=== PATIENT | female | born 1945 | race Hispanic/Latino ===

== ENCOUNTER 2017-03-25 09:52 | Emergency (ER) | payer OTHER ==
[2017-03-25] MEDS ORDERED: HYDROCODONE/ACETAMINOPHEN 5/325 MG TAB ONE (11:11)
[2017-06-10] MEDS ORDERED: BIOT5000 PO (12:47)
[2017-06-10] MEDS ORDERED: ATOR40TA71 PO (12:47)
[2017-06-10] MEDS ORDERED: GLIP1TAB6 PO (12:47)
[2017-06-10] MEDS ORDERED: LISI2.5T2 PO (12:47)
[2017-06-10] MEDS ORDERED: VIBRID PO (12:47)
[2017-06-10] MEDS ORDERED: LORA10CA9 PO (12:47)
[2017-06-10] MEDS ORDERED: ROPI0.255 PO (12:47)
[2017-06-10] MEDS ORDERED: [UNRECOGNIZED DRUG - OTHER] PUFF (12:47)
[2017-06-10] MEDS ORDERED: ALEN70TA47 PO (12:47)
[2017-06-10] MEDS ORDERED: INSU200I SQ (12:47)
[2017-06-10] MEDS ORDERED: DULO60CA63 PO (12:47)
[2017-06-10] MEDS ORDERED: TUSSIN COUGH PO (12:47)
[2017-06-10] MEDS ORDERED: GABA-529 PO (12:47)
[2017-06-10] MEDS ORDERED: ACET-2247 PO (12:47)
[2017-06-10] MEDS ORDERED: ASPI81TA40 PO (12:47)
[2017-06-10] MEDS ORDERED: FLUTICASONE PUFF (12:47)
[2017-06-10] MEDS ORDERED: IMIP75CA PO (12:47)
[2017-06-10] MEDS ORDERED: IRON PO (12:47)
[2017-06-10] MEDS ORDERED: OXYB5TAB10 PO (12:47)
[2017-06-10] MEDS ORDERED: FISH OIL PO (12:47)
[2017-06-10] MEDS ORDERED: INSU3INS3 SQ (12:47)
== END 2017-03-25 12:51 | disposition home or self-care (01) ==
LOC: EDH 09:52
DX: S80.01XA Contusion of right knee, initial encounter (principal); I10 Essential (primary) hypertension; E78.5 Hyperlipidemia, unspecified; E11.9 Type 2 diabetes mellitus without complications; Z98.890 Other specified postprocedural states; W18.39XA Other fall on same level, initial encounter; Y93.89 Activity, other specified; Y92.89 Other specified places as the place of occurrence of the external cause; Y99.8 Other external cause status
CPT/HCPCS: 71045; 73562

== ENCOUNTER 2017-06-11 08:34 | Day surgery (SDC) | payer OTHER ==
[~2017-06-11] VITALS: Ht 165.1 cm; Wt 94.9 kg
[~2017-06-11 08:34] MED LIST: ACET-2247 PO; ALEN70TA47 PO; ASPI81TA40 PO; ATOR40TA71 PO; BIOT5000 PO; DULO60CA63 PO; FISH OIL PO; FLUTICASONE PUFF; GABA-529 PO; GLIP1TAB6 PO; IMIP75CA PO; INSU200I SQ; INSU3INS3 SQ; IRON PO; LISI2.5T2 PO; LORA10CA9 PO; OXYB5TAB10 PO; ROPI0.255 PO; SODIUM CHLORIDE 0.9% 1000ML 1,000 ML IV ONE; TUSSIN COUGH PO; VIBRID PO; [UNRECOGNIZED DRUG - OTHER] PUFF
[2017-06-11 09:44] VITALS: BP 140/72
[2017-06-11] MEDS ORDERED: PROPOFOL 10 MG/ML 20ML VIAL IV ONE (10:55)
[2017-06-11 11:16] VITALS: BP 85/47
[2017-06-11 11:36] VITALS: BP 107/48
== END 2017-06-11 12:00 ==
LOC: ENDO 08:34 → DAH 08:34 → ENDO 12:00
PROVIDERS: ATTEND Internal Medicine Gastroenterology
DX: Z12.11 Encounter for screening for malignant neoplasm of colon (principal); Z86.010 Personal history of colon polyps; Z79.4 Long term (current) use of insulin; Z79.899 Other long term (current) drug therapy; K21.9 Gastro-esophageal reflux disease without esophagitis; J45.909 Unspecified asthma, uncomplicated; J18.9 Pneumonia, unspecified organism; Z68.41 Body mass index [BMI] 40.0-44.9, adult; G47.33 Obstructive sleep apnea (adult) (pediatric); E11.9 Type 2 diabetes mellitus without complications; J40 Bronchitis, not specified as acute or chronic
CPT/HCPCS: 82948 ×2; A4606; G0105; J2704; J7030

== ENCOUNTER → 2018-02-26 | Outpatient (CLI) | payer OTHER ==
[~2018-02-26] MED LIST changes: +ALEN70TA10 PO; -ALEN70TA47 PO; -DULO60CA63 PO; -ROPI0.255 PO; +ROPI0.257 PO; -SODIUM CHLORIDE 0.9% 1000ML 1,000 ML IV ONE
--- NOTE | 2018-02-26 21:00 | NUR ---
CURRENT MEDICATIONS LIST(BOTH PRESCRIPTION AND OVER THE COUNTER). PATIENT UNABLE TO RECALL SOME MEDICATION NAMES LANTUS, GLIPIZIDE , METFORMIN, ATORVASTATIN, ARTHRITIS PAIN TYLENOL, HYBRID TYLENOL3, DEPRESSION MEDICATION, URINE PROBLEM MED., STEROID INJECTIONS FOR PAIN, DIABETITUSSIN, FISH OIL , BIOTIN, DIABETIC NEUROPATHY PAIN MEDS. ROPINIROLE, GABAPENTIN, IMIPRAMINE, FLUTICASONE, FLOVENT. Addendum: 02/27/18 at 0004 by KARSON BRYANTLT Amended: Links added.
== END | disposition home or self-care (01) ==
LOC: SLP 20:33
PROVIDERS: ATTEND Family Medicine
DX: G47.33 Obstructive sleep apnea (adult) (pediatric) (principal); I10 Essential (primary) hypertension; E11.9 Type 2 diabetes mellitus without complications; E66.9 Obesity, unspecified; F32.9 Major depressive disorder, single episode, unspecified; R53.83 Other fatigue; M54.5 Low back pain
CPT/HCPCS: 95810

== ENCOUNTER → 2018-03-02 | Outpatient (CLI) | payer OTHER | END | disposition home or self-care (01) | LOC: SLP 20:15 | PROVIDERS: ATTEND Family Medicine | DX: G47.30 Sleep apnea, unspecified (principal); R06.83 Snoring | CPT/HCPCS: 95811 ==

== ENCOUNTER 2019-04-14 11:09 | Emergency (ER) | payer OTHER ==
[~2019-04-14 11:09] MED LIST changes: -OXYB5TAB10 PO; +OXYB5TAB15 PO
[2019-04-14 11:40] LABS: BASOPHILS % (AUTO) 0.7 % (0.0-5.0); EOSINOPHILS % (AUTO) 2.1 % (0.0-8.0); HEMATOCRIT 31.7 % (36-48); LYMPHOCYTES % (AUTO) 24.4 % (21.0-51.0); MEAN CORPUSCULAR HEMOGLOBIN 29.7 pg (27.0-33.0); MEAN CORPUSCULAR HGB CONC 32.2 g/dL (32.0-36.0); MEAN CORPUSCULAR VOLUME 92.4 fL (79-99); MONOCYTES % (AUTO) 7.1 % (3.0-13.0); NEUTROPHILS % (AUTO) 65.5 % (40.0-77.0); PLATELET COUNT (AUTO) 215 K/uL (130-400); RED BLOOD CELL COUNT(AUTO) 3.43 MIL/uL (4.00-5.50); RED CELL DISTRIBUTION WIDTH 12.8 % (11.0-15.5); WHITE BLOOD COUNT (AUTO) 5.8 K/uL (4.8-10.8)
[2019-04-14 11:52] LABS: CREATININE 1.1 mg/dL (0.5-1.5); POTASSIUM 4.4 mmol/L (3.5-5.1)
[2019-04-14 11:56] LABS: ALBUMIN 3.4 g/dL (3.5-5.0); BILIRUBIN,TOTAL 0.2 mg/dL (0.2-1.0); TOTAL PROTEIN, SERUM 6.7 g/dL (6.0-8.3)
[2019-04-14 12:07] LABS: INR 0.95 (0.85-1.15); PARTIAL THROMBOPLASTIN TIME 26.5 SEC (26.3-35.5)
[2019-04-14] MEDS ORDERED: IOHEXOL-350 75 ML VIAL IV ONE (12:59)
== END 2019-04-14 16:33 | disposition home or self-care (01) ==
LOC: EDH 11:09
DX: R00.0 Tachycardia, unspecified (principal); E11.9 Type 2 diabetes mellitus without complications; I10 Essential (primary) hypertension; E78.5 Hyperlipidemia, unspecified
CPT/HCPCS: 36415; 71045; 71275; 80053; 82550; 82948; 83880; 84443; 84484; 85025; 85378; 85610; 85730; 93005; 93970; 99285; Q9967

== ENCOUNTER → 2019-06-10 | Outpatient (CLI) | payer OTHER | END | disposition home or self-care (01) | LOC: RAH 08:36 | PROVIDERS: ATTEND Family Medicine | DX: Z12.31 Encounter for screening mammogram for malignant neoplasm of breast (principal) | CPT/HCPCS: 77067 ==

== ENCOUNTER → 2019-10-14 | Outpatient (CLI) | payer OTHER ==
[~2019-10-14] MED LIST changes: +REGADENOSON 0.4 MG/5 ML PF SYG IVP SCH
== END | disposition home or self-care (01) ==
LOC: SHCH 09:18
PROVIDERS: ATTEND Internal Medicine Cardiovascular Disease
DX: R06.00 Dyspnea, unspecified (principal); I25.10 Atherosclerotic heart disease of native coronary artery without angina pectoris
CPT/HCPCS: 78452; 93017; 96374; A9500 ×2; J2785

== ENCOUNTER → 2020-02-23 | Outpatient (CLI) | payer OTHER ==
[~2020-02-23] MED LIST changes: -ALEN70TA10 PO; +ALEN70TA69 PO; -REGADENOSON 0.4 MG/5 ML PF SYG IVP SCH
== END | disposition home or self-care (01) ==
LOC: SHCH 13:21
PROVIDERS: ATTEND Internal Medicine Cardiovascular Disease
DX: I95.1 Orthostatic hypotension (principal)
CPT/HCPCS: 93306; 93356

== ENCOUNTER 2020-05-09 00:59 | Emergency (ER) | payer OTHER ==
[~2020-05-09 00:59] MED LIST changes: -ALEN70TA69 PO; +ALEN70TA80 PO; +LISI2.5T13 PO; -LISI2.5T2 PO
[2020-05-09] MEDS ORDERED: 0.9%NACL 1000ML 1,000 ML IV ONE (01:00)
[2020-05-09 01:29] LABS: BASOPHILS % (AUTO) 0.8 % (0.0-5.0); EOSINOPHILS % (AUTO) 3.3 % (0.0-8.0); HEMATOCRIT 32.5 % (36-48); MEAN CORPUSCULAR HEMOGLOBIN 30.5 pg (27.0-33.0); MEAN CORPUSCULAR HGB CONC 32.9 g/dL (32.0-36.0); MEAN CORPUSCULAR VOLUME 92.6 fL (79-99); MONOCYTES % (AUTO) 9.7 % (3.0-13.0); NEUTROPHILS % (AUTO) 53.9 % (40.0-77.0); PLATELET COUNT (AUTO) 218 K/uL (130-400); RED BLOOD CELL COUNT(AUTO) 3.51 MIL/uL (4.00-5.50); RED CELL DISTRIBUTION WIDTH 12.2 % (11.0-15.5); WHITE BLOOD COUNT (AUTO) 7.3 K/uL (4.8-10.8)
[2020-05-09 01:31] LABS: CREATININE 1.6 mg/dL (0.5-1.5); POTASSIUM 4.8 mmol/L (3.5-5.1)
[2020-05-09 01:36] LABS: ALBUMIN 3.6 g/dL (3.5-5.0); BILIRUBIN,TOTAL 0.1 mg/dL (0.2-1.0); TOTAL PROTEIN, SERUM 6.4 g/dL (6.0-8.3)
[2020-05-09 02:42] LABS: INR 1.03 (0.85-1.15); PROTHROMBIN TIME 11.2 SEC (9.6-11.6)
[2020-05-09 02:43] LABS: PARTIAL THROMBOPLASTIN TIME 23.2 SEC (26.3-35.5)
[2020-05-09 05:42] LABS: APPEARANCE,URINE Clear (CLEAR); BILIRUBIN,URINE Negative (NEGATIVE); COLOR,URINE Yellow (YELLOW); GLUCOSE, URINE (UA) Negative (NEGATIVE); KETONES,URINE Negative (NEGATIVE); LEUKOCYTE ESTERASE ,URINE Moderate (NEGATIVE); NITRATE,URINE Positive (NEGATIVE); OCCULT BLOOD,URINE Negative (NEGATIVE); PROTEIN,URINE Negative (NEGATIVE); UROBILINOGEN,URINE 0.2 mg/dL (0.2-1.0)
[2020-05-09 05:55] LABS: BACTERIA,URINE Many /HPF (None Seen); RBC,URINE None Seen /HPF (0-1)
== END 2020-05-09 06:43 | disposition home or self-care (01) ==
LOC: EDH 00:59
DX: E86.0 Dehydration (principal); R55 Syncope and collapse; E11.9 Type 2 diabetes mellitus without complications; I10 Essential (primary) hypertension; E78.5 Hyperlipidemia, unspecified
CPT/HCPCS: 36415; 71045; 80053; 81001; 83880; 84484 ×2; 85025; 85610; 85730; 87077; 87088; 87186; 93005; 96360; 96361; 99285; J7030

== ENCOUNTER → 2020-06-23 | Outpatient (CLI) | payer OTHER ==
[~2020-06-23] MED LIST changes: -LISI2.5T13 PO; +LISI2.5T2 PO
== END | disposition home or self-care (01) ==
LOC: RAH 10:17
PROVIDERS: ATTEND Family Medicine
DX: Z12.31 Encounter for screening mammogram for malignant neoplasm of breast (principal); Z00.01 Encounter for general adult medical examination with abnormal findings
CPT/HCPCS: 77067

== ENCOUNTER → 2021-03-15 | Outpatient (CLI) | payer OTHER ==
[~2021-03-15] MED LIST changes: +GADOTERATE MEGLUMINE 10 MMOL/20 ML VIAL IV ONE; +LISI2.5T13 PO; -LISI2.5T2 PO
== END | disposition home or self-care (01) ==
LOC: RAH 10:00
PROVIDERS: ATTEND Family Medicine
DX: M47.26 Other spondylosis with radiculopathy, lumbar region (principal); M48.07 Spinal stenosis, lumbosacral region; N28.89 Other specified disorders of kidney and ureter
CPT/HCPCS: 72158; A9575

== ENCOUNTER → 2021-05-03 | Outpatient (CLI) | payer OTHER ==
[~2021-05-03] MED LIST changes: -GADOTERATE MEGLUMINE 10 MMOL/20 ML VIAL IV ONE; +IOHEXOL-350 75 ML VIAL IV ONE
== END | disposition home or self-care (01) ==
LOC: RAH 08:23
PROVIDERS: ATTEND Family Medicine
DX: N28.89 Other specified disorders of kidney and ureter (principal); Z90.49 Acquired absence of other specified parts of digestive tract
CPT/HCPCS: 74170; Q9967

== ENCOUNTER → 2022-01-07 | Outpatient (CLI) | payer OTHER ==
[~2022-01-07] MED LIST changes: -IOHEXOL-350 75 ML VIAL IV ONE
[2022-01-07 12:53] LABS: CREATININE 0.9 mg/dL (0.5-1.5); POTASSIUM 4.9 mmol/L (3.5-5.1); TOTAL PROTEIN, SERUM 7.5 g/dL (6.0-8.3)
== END | disposition home or self-care (01) ==
LOC: LAB 09:55
PROVIDERS: ATTEND Internal Medicine Cardiovascular Disease
DX: I25.10 Atherosclerotic heart disease of native coronary artery without angina pectoris (principal); I95.1 Orthostatic hypotension; E78.5 Hyperlipidemia, unspecified
CPT/HCPCS: 36415; 80053; 80061

== ENCOUNTER → 2022-12-17 | Outpatient (CLI) | payer OTHER ==
[~2022-12-17] MED LIST changes: -OXYB5TAB15 PO; +OXYB5TAB20 PO; +ROPI0.2535 PO; -ROPI0.257 PO
[2022-12-17 13:04] LABS: ALBUMIN 3.8 g/dL (3.5-5.0); BILIRUBIN,TOTAL 0.2 mg/dL (0.2-1.0); CREATININE 0.9 mg/dL (0.5-1.5); POTASSIUM 5.1 mmol/L (3.5-5.1); TOTAL PROTEIN, SERUM 7.2 g/dL (6.0-8.3)
== END | disposition home or self-care (01) ==
LOC: LAB 08:57
PROVIDERS: ATTEND Internal Medicine Cardiovascular Disease
DX: E78.5 Hyperlipidemia, unspecified (principal)
CPT/HCPCS: 36415; 80053; 80061

== ENCOUNTER 2024-01-05 12:49 | Observation (INO) | payer OTHER ==
[~2024-01-05] VITALS: Ht 152.4 cm; Wt 66.8 kg
--- NOTE | 2024-01-05 13:29 | ERN ---
ED Note History of Present Illness Stated Complaint: FALL Chief Complaint: Mechanical Fall Time Seen by MD: 12:51 Dictation: Patient is a 78-year-old female with past medical history of diabetes, depression, anxiety, OCD, osteoporosis came to the ED with chief complaint of pain in the right back since this morning. Patient had a mechanical fall this morning where she directly to her right back of chest to the paper Isonaser machine and complains of pain and tenderness, she also hit her head, right hip, right fingers and right toes. There is no loss of consciousness. There is no loss in range of motion. Allergies: Coded Allergies: No Known Drug Allergies (Unverified Allergy, Unknown, 06/11/17) Home Meds Reported Medications Trazodone HCl (Trazodone HCl) 50 Mg Tablet, 1 TAB PO HS for 30 Days, #30 TAB 0 Refills 01/05/24 Ropinirole HCl (Ropinirole HCl) 0.25 Mg Tablet, 1 TAB PO HS for 30 Days, #30 TAB 0 Refills 01/05/24 Gabapentin (Gabapentin) 600 Mg Tablet, 1 TAB PO HS for 30 Days, #90 TAB 0 Refills 01/05/24 Gabapentin (Gabapentin) 100 Mg Capsule, 300 MG PO DAILY, CAP 01/05/24 Oxybutynin Chloride (Oxybutynin Chloride ER) 5 Mg Tab.er.24, 1 TAB PO DAILY for 30 Days, #30 TAB 0 Refills 01/05/24 Pindolol (Pindolol) 10 Mg Tablet, 5 MG PO DAILY, TAB 01/05/24 Buspirone HCl (Buspirone HCl) 5 Mg Tablet, 1 TAB PO BID for 30 Days, #60 TAB 0 Refills 01/05/24 Baclofen (Baclofen) 10 Mg Tablet, 10 MG PO BID, TAB 01/05/24 Metformin HCl (Metformin HCl) 500 Mg Tablet, 500 MG PO TID, TAB 01/05/24 Paroxetine HCl (Paroxetine HCl) 10 Mg Tablet, 1 TAB PO DAILY for 30 Days, #30 TAB 0 Refills 01/05/24 Acetaminophen (Tylenol) 325 Mg Tablet, 2 TAB PO TID, TAB 06/10/17 Biotin (Biotin) 5,000 Mcg Tab.rapdis, 5000 MCG PO DAILY, TAB 06/10/17 Insulin Glargine,Hum.rec.anlog (Lantus Solostar) 100 Unit/1 Ml Insuln.pen, 50 UNIT SQ AD, SYRINGE 06/10/17 Atorvastatin Calcium (Atorvastatin Calcium) 40 Mg Tablet, 40 MG PO DAILY, TAB 06/10/17 Oxybutynin Chloride (Oxybutynin Chloride) 5 Mg Tablet, 5 MG PO BID, TAB 06/10/17 Alendronate Sodium (Alendronate Sodium) 70 Mg Tablet, 70 MG PO WKLY, TAB 06/10/17 Lisinopril (Lisinopril) 2.5 Mg Tablet, 2.5 MG PO DAILY, TAB 06/10/17 Glipizide/Metformin HCl (Glipizide-Metformin 5-500 mg) 1 Each Tablet, 1 EACH PO BID, TAB 06/10/17 [Fluticasone] No Conflict Check, 50 MCG PUFF BID 1 PUFF 06/10/17 [Qva] No Conflict Check, 40 MCG PUFF BID 1 PUFF 06/10/17 [Fish Oil ] No Conflict Check, PO AD 06/10/17 [Tussin Cough ] No Conflict Check, PO AD 06/10/17 [Iron] No Conflict Check, 65 MG PO WKLY 06/10/17 Loratadine (Loratadine) 10 Mg Capsule, 10 MG PO AD, CAP 06/10/17 Imipramine Pamoate (Imipramine Pamoate) 75 Mg Capsule, 75 MG PO HS, CAP 06/10/17 [Vibrid] No Conflict Check, 10 MG PO AD 06/10/17 Aspirin (Aspir-Low) 81 Mg Tablet.dr, 81 MG PO DAILY, TAB 06/10/17 Insulin Lispro (Humalog Kwikpen) 200 Unit/1 Ml Insuln.pen, 30 UNIT SQ AD, SYRINGE 06/10/17 Discontinued Reported Medications Gabapentin (Gabapentin) 100 Mg Capsule, 100 MG PO BID, CAP 06/10/17 Ropinirole HCl (Ropinirole HCl) 0.25 Mg Tablet, 0.25 MG PO TID, TAB 06/10/17 Past Medical History Past Medical History: Other Surgical History: Other Review of System Dictation Constitutional-no chills, weight loss/gain, fever Eyes-no injury, pain, redness and discharge ENT-no injury, pain, swelling Cardiovascular no chest pain, palpitations, edema Respiratory no shortness of breath, cough, wheezing Abdomen/GI-no abdominal pain, diarrhea, constipation, vomiting, nausea Back no injury and pain Genitourinary no injury, bleeding and discharge Musculoskeletal/extremities no injury, deformity . Patient has pain and tenderness in right pack of chest, right hip Skin no rash, discoloration Neuro-no headache, weakness, numbness, tingling, seizures, tremors Psych-no suicidal ideation, homicidal ideation, hallucinations, depression, anxiety, memory loss Initial Vital Sign VS Vital Signs Date Time Temp Pulse Resp B/P (MAP) Pulse Ox O2 Delivery O2 Flow Rate FiO2 01/05/24 12:50 97.0 64 20 150/71 99 Room Air 01/05/24 13:05 0 21 Physical Exam Dictation General-patient is awake alert and oriented Head/neck-normocephalic, atraumatic Eyes-PERRL, EOMI, vision at baseline Neck-trachea midline, supple, no nuchal rigidity Cardiovascular-RRR, normal S1/S2, no MRG is, no JVD Respiratory-no distress, wheezing, rales, rhonchi Abdomen-no tenderness, guarding, soft, nondistended Skin warm, dry, normal turgor, no rash Musculoskeletal/extremities pulses equal, no cyanosis Neuro-COA X 4, GCS 15, strength 5/5, CN 2-12 intact Psych-normal behavior, mood and affect normal Results (Laboratory/Radiology) Laboratory/Radiology Laboratory Tests Test 01/05/24 14:58 White Blood Count 5.1 K/uL (4.8-10.8) Red Blood Count 3.22 MIL/uL (4.00-5.50) L Hemoglobin 10.4 g/dL (12.0-16.0) L Hematocrit 31.0 % (36-48) L Mean Corpuscular Volume 96.3 fL (79-99) Mean Corpuscular Hemoglobin 32.3 pg (27.0-33.0) Mean Corpuscular Hemoglobin Concent 33.5 g/dL (32.0-36.0) Red Cell Distribution Width 12.3 % (11.0-15.5) Platelet Count 198 K/uL (130-400) Mean Platelet Volume 9.3 fL (7.5-10.5) Immature Granulocyte % (Auto) 0.8 % (0-1) Neutrophils (%) (Auto) 70.2 % (40.0-77.0) Lymphocytes (%) (Auto) 15.2 % (21.0-51.0) L Monocytes (%) (Auto) 10.8 % (3.0-13.0) Eosinophils (%) (Auto) 2.0 % (0.0-8.0) Basophils (%) (Auto) 1.0 % (0.0-5.0) Neutrophils # (Auto) 3.6 K/uL (1.8-7.7) Lymphocytes # (Auto) 0.8 K/uL (1.0-4.8) L Monocytes # (Auto) 0.6 K/uL (0.1-1.0) Eosinophils # (Auto) 0.10 K/uL (0.00-0.70) Basophils # (Auto) 0.05 K/uL (0.00-0.20) Absolute Immature Granulocyte (auto 0.04 K/uL (0-1) Nucleated Red Blood Cells 0.0 % (0.0-0.19) Prothrombin Time 11.1 SEC (9.6-11.6) Prothromb Time International Ratio 1.03 (0.85-1.15) Activated Partial Thromboplast Time 26.9 SEC (26.3-35.5) Sodium Level 137 mmol/L (136-145) Potassium Level 4.8 mmol/L (3.5-5.1) Chloride Level 102 mmol/L (101-111) Carbon Dioxide Level 29 mmol/L (21-32) Blood Urea Nitrogen 22 mg/dL (7-18) H Creatinine 0.8 mg/dL (0.5-1.0) Glomerular Filtration Rate Calc 74 mL/min (>90) Random Glucose 108 mg/dL (70-105) H Total Calcium 9.3 mg/dL (8.5-10.1) Magnesium Level 1.50 mg/dL (1.80-2.40) L Total Creatine Kinase 218 U/L (21-232) # Troponin I High Sensitivity 17 ng/L (4-50) B-Type Natriuretic Peptide 77 pg/mL (0-100) CT Scan Comment: PATIENT: BRYANT SLATER MR#: [id number] : 1945 SEX: F AGE: 78 LOCATION: [facility] ORDER 08 STATUS: REG [facility]OSPITAL REPORT#: [id number] SERVICE 05 REASON: mechanical fall , impact to head ORDERING PHYSICIAN: LYUBOV PANDA MD PROCEDURE: CHESTAB WO - CT CHEST ABDOMEN W/O CONTRAST CT CHEST ABDOMEN W/O CONTRAST REASON: mechanical fall , impact to head COMPARISON: 05/03/2021 TECHNIQUE: Images are obtained from thoracic inlet through the iliac crests. Sagittal and coronal reconstruction images were performed. FINDINGS: There is a complex fracture of the ninth posterior rib. This includes a nondisplaced fracture, there is a 3 cm long fragment followed by a second to displaced rib fracture. Remaining ribs appear intact as do the sternum and the thoracic spine. Lungs are clear. There is no evidence of contusion or laceration. There is no pneumothorax or pleural effusion. Heart size is normal with no vascular congestion, there is extensive coronary artery calcification. Chest wall structures appear otherwise unremarkable. There are no focal liver lesions. Spleen, right kidney and pancreas appear normal. There is a complex mass extending posteriorly from the midportion of the left kidney. This measures 3.2 cm greatest axial dimension. This was visible on previous exam 05/03/2021 as a noncalcified 4.7 cm soft tissue mass. Findings are consistent with a treated hypernephroma. Residual tumor cannot be excluded by this exam. Gallbladder is absent. The common duct is markedly distended at 1.4 cm. There are no visible stones. Bowel loops appear normal. There is no free air or fluid. There are no focal fluid collections. There is a small ventral hernia just to the left of midline in the periumbilical region. There are surgical changes in the lower lumbar spine. IMPRESSION: 1. There are 2 contiguous fractures in the left posterior ninth rib, 1 nondisplaced and second displaced. 2. No other acute finding in the chest or abdomen. 3. 3.2 cm partially calcified mass posterior margin of the left kidney, appearance consistent with a treated hypernephroma as described above. 4. Absent gallbladder, the common duct is dilated at 1.2 cm, the pancreas appears unremarkable. DICTATED BY: ESME QUIJANO MD DATE: 01/05/24 142 ELECTRONICALLY SIGNED BY: ESME QUIJANO MD DATE: 01/05/24 143 PATIENT: BRYANT SLATER MR#: [id number] : 1945 SEX: F AGE: 78 LOCATION: [facility] ORDER 1309 STATUS: REG ER REPORT#: [id number] SERVICE 1306 REASON: mechanical fall , impact to head ORDERING PHYSICIAN: LYUBOV PANDA MD PROCEDURE: HEAD WO - CT HEAD/BRAIN W/O CONTRAST Exam: NONCONTRAST CT BRAIN REASON: mechanical fall , impact to head. COMPARISON: 08/24/2012 TECHNIQUE: Images are obtained from vertex to the skull base. The exam was performed without IV contrast. FINDINGS: There is normal appearing brain parenchyma. There are no focal mass lesions. There is is no evidence of intracranial hemorrhage or acute stroke. Ventricles and sulci appear generous consistent with age or mild involutional change. Posterior fossa and brainstem structures are unremarkable. Paranasal sinuses and remaining extracranial soft tissues appear normal as well. IMPRESSION: 1. No acute intracranial finding. CT was performed with one or more following dose reduction techniques: automated exposure control, adjustment of the mA and kv according to patient's size, or use of a iterative reconstruction technique. DICTATED BY: ESME QUIJANO MD DATE: 01/05/241421 ELECTRONICALLY SIGNED BY: ESME QUIJANO MD DATE: 01/05/24 142 ED Course ED Course Orders Procedure Category Date Status Time Ct Head/Brain W/O CT 01/05/24 Resulted Contrast 13:06 Ct Chest Abdomen W/O CT 01/05/24 Resulted Contrast 13:06 Acetaminophen 500mg PHA 01/05/24 Complete Tab (Tylenol 500mg T 13:30 Cbc With Differential LAB 01/05/24 Complete 14:46 Prothrombin Time With LAB 01/05/24 Complete INR 14:46 B-Type Natriuretic LAB 01/05/24 Complete Peptide 14:46 Chest 1vw RAD 01/05/24 Resulted 14:46 12 Lead Ekg Tracing- EKG 01/05/24 Logged Technical 14:46 Magnesium LAB 01/05/24 Complete 14:46 Creatine Kinase, Total LAB 01/05/24 Complete 14:46 Troponin I High LAB 11/25/24 Complete Sensitivity 14:46 Partial LAB 01/05/24 Complete Thromboplastin Time 14:46 Basic Metabolic Panel LAB 01/05/24 Complete 14:46 Orphenadrine Citrate PHA 01/05/24 Complete (Norflex) 15:00 Gabapentin 100 Mg Cap PHA 01/05/24 Complete (Neurontin 100 Mg 15:00 Hip Unilat 2-3vw Right RAD 01/05/24 Resulted 14:59 Hand 3+Vws Rt RAD 01/05/24 Resulted 14:59 Toe(S) 2+Vws Rt RAD 01/05/24 Resulted 14:59 Gabapentin 100 Mg Cap PHA 01/05/24 Complete (Neurontin 100 Mg 15:30 Vital Signs Every 4 CPOE 01/05/24 Transmitted Hours 15:54 Daily Weights CPOE 01/05/24 Transmitted 15:54 I&O Q Shift CPOE 01/05/24 Transmitted 15:54 Intake And Output CPOE 01/05/24 Transmitted Every 1 Hour 15:54 Heart Healthy Diet DIET 01/05/24 Transmitted Dinner Cbc With Differential LAB 01/06/24 Verified 04:00 Basic Metabolic Panel LAB 01/06/24 Verified 04:00 Magnesium LAB 01/06/24 Verified 04:00 Phosphorus LAB 01/06/24 Verified 04:00 Acetaminophen 325 Tab PHA 01/05/24 In Process (Tylenol 325mg Tab 16:00 Acetaminophen 650mg PHA 01/05/24 In Process Supp (Tylenol 650mg 16:00 Initiate NAOMIE 01/05/24 In Process Hyperglycemia Protoco 15:54 Hydromorphone 0.5mg PHA 01/05/24 In Process Syg (Dilaudid 0.5mg 16:00 Tramadol Hcl (Ultram) PHA 01/05/24 In Process 16:00 Admit Orders ADM 01/05/24 Transmitted 15:57 Is Q2h X 10 CPOE 01/05/24 Transmitted Breaths/Awake 15:58 Ipratropium/Albuterol PHA 01/05/24 In Process Neb (Duoneb) 16:00 Magnesium 2gm Premix PHA 01/05/24 In Process 50ml (Magnesium 2gm 17:00 Lidocaine (Lidoderm PHA 01/05/24 In Process Patch 5%) 17:00 Current Medications Medications (Trade) Dose Ordered Sig/Elvira Route PRN Reason Start Time Stop Time Status Last Admin Dose Admin Acetaminophen (TYLenol 500MG TAB) 1,000 mg ONCE ONCE PO 01/05/24 13:30 01/05/24 13:34 DC 01/05/24 13:51 Gabapentin (NEURontin 100 mg CAP) 100 mg ONCE PO 01/05/24 15:00 01/05/24 15:06 DC Gabapentin (NEURontin 100 mg CAP) 100 mg ONCE ONCE PO 01/05/24 15:30 01/05/24 15:31 DC 01/05/24 15:15 Orphenadrine Citrate (Norflex) 60 mg ONCE ONCE IM 01/05/24 15:00 01/05/24 15:06 DC 01/05/24 15:15 Vital Signs Date Time Temp Pulse Resp B/P (MAP) Pulse Ox O2 Delivery O2 Flow Rate FiO2 01/05/24 16:50 68 18 N/A Room Air 21 01/05/24 16:30 98.1 63 16 136/64 99 Room Air* 0 21 01/05/24 15:15 98.2 63 16 144/56 99 Room Air* 0 21 01/05/24 14:30 98.2 63 16 125/48 99 Room Air* 0 21 01/05/24 13:05 98.2 63 16 129/48 100 Room Air* 0 21 01/05/24 12:50 97.0 64 20 150/71 99 Room Air Medical Decision Making MDM INITIAL IMPRESSION Initial history and physical concerning for mechanical fall, posterior rib fracture I have reviewed the triage nursing notes and vital signs. Initial plan: CT head/brain, chest and abdomen DATA REVIEW I have reviewed additional NN, repeat VS, and monitoring where indicated. Heart rate, blood pressure, and O2 saturation are acceptable. ED COURSE Interventions: Pain medication Reassessment: Not indicated DISPOSITION Final diagnostic impression: Patient has posterior 9th rib fracture I discussed my findings, clinical impression and treatment recommendations with the patient. I have reviewed the social factors contributing to the patient's presentation and disposition planning. My final plan for disposition was made based upon -mild risk of complications and potential morbidity of the patient's condition. -Discussion with the patient regarding management options. Patient will be admitted for pain management DX & DISP Disposition: Inpatient Decision to Admit Date: Jan 05, 2024 Decision to Admit Time: 15:53 Departure Impression: Primary Impression: Right rib fracture Additional Impressions: Fracture of rib of right side, Intractable back pain Condition: Stable Referrals: VERENICE SATHL MD (PCP) Time of Disposition: 15:53 I have reviewed I have reviewed the case I WAS PRESENT AND PARTICIPATED IN THE CARE OF THIS PATIENT ALONGSIDE WITH THE RESIDENT PHYSICIAN. I HAVE REVIEWED AND PERSONALLY MADE AND APPROVED THE MANAGEMENT PLAN THAT IS DOCUMENTED IN THE NOTE BY MYSELF WITH THE RESIDENT PHYSICIAN. I ACKNOWLEDGED FOR RESPONSIBILITY FOR THE PATIENT'S MANAGEMENT PLAN. I have examined patient LYUBOV PANDA MD Jan 05, 2024 13:29 CHRISSY LIVINGSTON MD Jan 05, 2024 17:18
[2024-01-05] MEDS: acetaMINOPHEN 500 MG TABLET PO ONE (13:51)
--- NOTE | 2024-01-05 14:25 | HMCIMG ---
Exam: NONCONTRAST CT BRAIN REASON: mechanical fall , impact to head. COMPARISON: 08/24/2012 TECHNIQUE: Images are obtained from vertex to the skull base. The exam was performed without IV contrast. FINDINGS: There is normal appearing brain parenchyma. There are no focal mass lesions. There is is no evidence of intracranial hemorrhage or acute stroke. Ventricles and sulci appear generous consistent with age or mild involutional change. Posterior fossa and brainstem structures are unremarkable. Paranasal sinuses and remaining extracranial soft tissues appear normal as well. IMPRESSION: 1. No acute intracranial finding. CT was performed with one or more following dose reduction techniques: automated exposure control, adjustment of the mA and kv according to patient's size, or use of a iterative reconstruction technique.
--- NOTE | 2024-01-05 14:32 | HMCIMG ---
CT CHEST ABDOMEN W/O CONTRAST REASON: mechanical fall , impact to head COMPARISON: 05/03/2021 TECHNIQUE: Images are obtained from thoracic inlet through the iliac crests. Sagittal and coronal reconstruction images were performed. FINDINGS: There is a complex fracture of the ninth posterior rib. This includes a nondisplaced fracture, there is a 3 cm long fragment followed by a second to displaced rib fracture. Remaining ribs appear intact as do the sternum and the thoracic spine. Lungs are clear. There is no evidence of contusion or laceration. There is no pneumothorax or pleural effusion. Heart size is normal with no vascular congestion, there is extensive coronary artery calcification. Chest wall structures appear otherwise unremarkable. There are no focal liver lesions. Spleen, right kidney and pancreas appear normal. There is a complex mass extending posteriorly from the midportion of the left kidney. This measures 3.2 cm greatest axial dimension. This was visible on previous exam 05/03/2021 as a noncalcified 4.7 cm soft tissue mass. Findings are consistent with a treated hypernephroma. Residual tumor cannot be excluded by this exam. Gallbladder is absent. The common duct is markedly distended at 1.4 cm. There are no visible stones. Bowel loops appear normal. There is no free air or fluid. There are no focal fluid collections. There is a small ventral hernia just to the left of midline in the periumbilical region. There are surgical changes in the lower lumbar spine. IMPRESSION: 1. There are 2 contiguous fractures in the left posterior ninth rib, 1 nondisplaced and second displaced. 2. No other acute finding in the chest or abdomen. 3. 3.2 cm partially calcified mass posterior margin of the left kidney, appearance consistent with a treated hypernephroma as described above. 4. Absent gallbladder, the common duct is dilated at 1.2 cm, the pancreas appears unremarkable.
[2024-01-05] MEDS ORDERED: GABApentin 100 MG CAPSULE PO SCH ×2 (15:00→21:00)
[2024-01-05 15:07] LABS: BASOPHILS # (AUTO) 0.05 K/uL (0.00-0.20); IMMATURE GRANULOCYTE ABSOLUTE 0.04 K/uL (0-1); LYMPHOCYTES # (AUTO) 0.8 K/uL (1.0-4.8); LYMPHOCYTES % (AUTO) 15.2 % (21.0-51.0); MEAN CORPUSCULAR HEMOGLOBIN 32.3 pg (27.0-33.0); MEAN CORPUSCULAR HGB CONC 33.5 g/dL (32.0-36.0); MEAN CORPUSCULAR VOLUME 96.3 fL (79-99); MONOCYTES # (AUTO) 0.6 K/uL (0.1-1.0); MONOCYTES % (AUTO) 10.8 % (3.0-13.0); NEUTROPHILS # (AUTO) 3.6 K/uL (1.8-7.7); NEUTROPHILS % (AUTO) 70.2 % (40.0-77.0); PLATELET COUNT (AUTO) 198 K/uL (130-400); RED BLOOD CELL COUNT(AUTO) 3.22 MIL/uL (4.00-5.50); RED CELL DISTRIBUTION WIDTH 12.3 % (11.0-15.5); WHITE BLOOD COUNT (AUTO) 5.1 K/uL (4.8-10.8)
[2024-01-05] MEDS: GABApentin 100 MG CAPSULE PO ONE (15:15)
[2024-01-05] MEDS: ORPHENADRINE 60MG/2ML IM ONE (15:15)
[2024-01-05 15:19] LABS: INR 1.03 (0.85-1.15); PROTHROMBIN TIME 11.1 SEC (9.6-11.6)
[2024-01-05 15:21] LABS: PARTIAL THROMBOPLASTIN TIME 26.9 SEC (26.3-35.5)
[2024-01-05 15:26] LABS: CREATININE 0.8 mg/dL (0.5-1.0); POTASSIUM 4.8 mmol/L (3.5-5.1)
[2024-01-05 15:31] LABS: MAGNESIUM 1.5 mg/dL (1.80-2.40)
[2024-01-05 15:36] LABS: B-TYPE NATRIURETIC PEPTIDE 77 pg/mL (0-100)
--- NOTE | 2024-01-05 15:43 | HMCIMG ---
TOE(S) 2+VWS RT REASON: mechanical fall TECHNIQUE: 3 views were obtained. FINDINGS: There is no evidence of fracture or dislocation. There is no joint effusion. The soft tissues appear unremarkable. There is no evidence of a radiopaque foreign body. IMPRESSION: No acute findings.
--- NOTE | 2024-01-05 15:43 | HMCIMG ---
HAND 3+VWS RT REASON: mechanical fall TECHNIQUE: 3 views were obtained. FINDINGS: There is no evidence of fracture or dislocation. There is no joint effusion. The soft tissues appear unremarkable. There is no evidence of a radiopaque foreign body. IMPRESSION: No acute findings.
--- NOTE | 2024-01-05 15:43 | HMCIMG ---
CHEST 1VW REASON: fall COMPARISON: None. FINDINGS: Single view of the chest was obtained. Lungs are clear. Heart size is normal. There is no pulmonary vascular congestion. Mediastinum and bony thorax appear unremarkable. There are dorsal column stimulator leads in the lower thoracic spine. IMPRESSION: Lower thoracic spine. 1. No acute finding.
--- NOTE | 2024-01-05 15:43 | HMCIMG ---
HIP UNILAT 2-3VW RIGHT REASON: mechanical fall COMPARISON: None TECHNIQUE: 2 views were obtained of the pelvis and right hip. FINDINGS: There are normal-appearing bones of the pelvis. There are no fractures. Hip joint spaces appear preserved. Proximal right femur appears unremarkable as well. IMPRESSION: 1. No acute finding, no fracture.
[2024-01-05] MEDS ORDERED: IpraTROPium/alBUTERol SULFATE 3 ML SOLUTION IH PRN (16:00)
[2024-01-05] MEDS ORDERED: acetaMINOPHEN 650 MG SUPPOSITORY RC PRN (16:00)
[2024-01-05] MEDS ORDERED: traMADol HCL 50 MG TABLET PO SCH (16:00)
[2024-01-05] MEDS ORDERED: PARO10TA71 PO (16:38)
[2024-01-05] MEDS ORDERED: METF-444 PO (16:38)
--- NOTE | 2024-01-05 16:49 | HP ---
[facility] HISTORY & PHYSICAL Date Patient Seen: Jan 05, 2024 Time of Visit: 1929 Supervising Physician: [Dr. Jeff Goode ] Primary Care Physician: [Dr. Marc Mccann ] Outpatient Specialists: [Dr. Christian-nephro, Dr. Stephens-cardiology] Inpatient Consults: [Dr. Antonio-ortho ] PROBLEM LIST: Complex right posterior 9th rib fracture-POA S/p Mechanical fall-POA Depression and grieving 2/2 of her -POA DNR, no suicide thoughts or ideation -POA Hypomagnesemia-POA Anxiety disorder Hypotension Diabetes mellitus Chronic anemia Chronic bronchitis Osteoporosis Left kidney cancer s/p cryoablation PLAN: -Admit to medsurg unit -Multimodal pain management -Obtain rib xray -PT/OT to eval and treat -I.S. q1H x 10 while awake -Consult ortho, Dr. Antonio, ryanteam to follow-up pls -Monitor electrolytes, replete PRN -In reference to the 1.4 cm dilated CBD, will order LFTs and if if remarkable, consider RUQ US. dayteam to follow-up pls HPI: [Patient is a 78-year-old female with PMH significant for anxiety, depression, diabetes, anemia, chronic bronchitis, osteoporosis and left kidney cancer status post cryoablation was presented at the ED concerning mechanical fall. Patient claims that her just recently and she was sorting out his personal stuff in the room when her foot got tangled on some bed sheets leading to the fall hitting her right side. She denies dizziness or syncopal episode and claims it was an accident. At the ED, her preliminary laboratory was unremarkable except for mild hypomagnesemia. Imaging studies on the head, chest, hip, pelvis and toes are negative acute fracture or dislocation. Chest CT revealed 2 contiguous fractures in the left posterior ninth rib, nondisplaced and second displaced. 3.2 cm partially calcified mass posterior margin of the left kidney, appearance consistent with a treated hypernephroma, absent gallbladder, the common duct is dilated, the pancreas appears unremarkable. Otherwise, negative for acute intra-abdominal findings. Patient claims that there is nothing wrong with her left chest already and the pain was coming from her right posterior ribs and showed me some skin abrasion. A repeat x-ray of bilateral ribs were ordered. Patient wants to be DNR and was witnessed by 2 bedside RN it is in the unit. Goals of care were discussed with the patient verbalizes understanding and agreement. ] PAST MEDICAL HX: see above PAST SURGICAL HX: noncontributory SOCIAL HISTORY: No tobacco, ETOH, or illicit drug use Coded Allergies: No Known Drug Allergies (Unverified Allergy, Unknown, 06/11/17) REVIEW OF SYSTEMS: 12 point ROS reviewed with patient. Pertinent positives mentioned above. Otherwise negative. PHYSICAL EXAM: GENERAL: alert, weak, awake oriented x 3 HEENT: EOMI, Sclera non icteric, moist mucosa NECK: Supple, no JVD, trachea midline LUNGS: Clear breath sounds bilaterally. No wheezes HEART: Regular rate and rhythm. Normal S1 and S2, without murmurs ABD: Abdomen soft, nontender. Bowel sounds present EXT: No clubbing cyanosis or edema NEURO: Alert and oriented to person, follows commands Vital Signs (last 8hr) Date Time Temp Pulse Resp B/P (MAP) Pulse Ox O2 Delivery O2 Flow Rate FiO2 01/05/24 15:15 98.2 63 16 144/56 99 Room Air* 0 21 01/05/24 14:30 98.2 63 16 125/48 99 Room Air* 0 21 01/05/24 13:05 98.2 63 16 129/48 100 Room Air* 0 21 01/05/24 12:50 97.0 64 20 150/71 99 Room Air LABS: Hematology Labs: Test 01/05/24 14:58 Range/Units White Blood Count 5.1 4.8-10.8 K/uL Red Blood Count 3.22 L 4.00-5.50 MIL/uL Hemoglobin 10.4 L 12.0-16.0 g/dL Hematocrit 31.0 L 36-48 % Mean Corpuscular Volume 96.3 79-99 fL Mean Corpuscular Hemoglobin 32.3 27.0-33.0 pg Mean Corpuscular Hemoglobin Concent 33.5 32.0-36.0 g/dL Red Cell Distribution Width 12.3 11.0-15.5 % Platelet Count 198 130-400 K/uL Mean Platelet Volume 9.3 7.5-10.5 fL Immature Granulocyte % (Auto) 0.8 0-1 % Neutrophils (%) (Auto) 70.2 40.0-77.0 % Lymphocytes (%) (Auto) 15.2 L 21.0-51.0 % Monocytes (%) (Auto) 10.8 3.0-13.0 % Eosinophils (%) (Auto) 2.0 0.0-8.0 % Basophils (%) (Auto) 1.0 0.0-5.0 % Neutrophils # (Auto) 3.6 1.8-7.7 K/uL Lymphocytes # (Auto) 0.8 L 1.0-4.8 K/uL Monocytes # (Auto) 0.6 0.1-1.0 K/uL Eosinophils # (Auto) 0.10 0.00-0.70 K/uL Basophils # (Auto) 0.05 0.00-0.20 K/uL Absolute Immature Granulocyte (auto 0.04 0-1 K/uL Nucleated Red Blood Cells 0.0 0.0-0.19 % Chemistry Labs: Test 01/05/24 14:58 Range/Units Sodium Level 137 136-145 mmol/L Potassium Level 4.8 3.5-5.1 mmol/L Chloride Level 102 101-111 mmol/L Carbon Dioxide Level 29 21-32 mmol/L Blood Urea Nitrogen 22 H 7-18 mg/dL Creatinine 0.8 0.5-1.0 mg/dL Glomerular Filtration Rate Calc 74 >90 mL/min Random Glucose 108 H 70-105 mg/dL Total Calcium 9.3 8.5-10.1 mg/dL Magnesium Level 1.50 L 1.80-2.40 mg/dL Total Creatine Kinase 218 # 21-232 U/L Troponin I High Sensitivity 17 4-50 ng/L B-Type Natriuretic Peptide 77 0-100 pg/mL Coagulation Labs: Test 01/05/24 14:58 Range/Units Prothrombin Time 11.1 9.6-11.6 SEC Prothromb Time International Ratio 1.03 0.85-1.15 Activated Partial Thromboplast Time 26.9 26.3-35.5 SEC DIAGNOSTICS / RADIOLOGY RESULTS: [ ] PLAN NEURO: Minimize central acting medications as possible. Maintain fall precautions, adequate lighting during the day PULMONARY: Supplemental 02 as needed. Maintain aspiration precautions at all times CARDIOVASCULAR: Follow hemodynamics. Vital signs per facility protocol GI & NUTRITION: Continue with nutritional support. Continue stool softeners and laxatives as needed. KIDNEYS & ELECTROLYTES: Strict monitoring of intake, output and overall fluid balance. Avoid nephrotoxic medications to the extent possible. Medications to be dosed according to renal function. Monitor electrolytes and replace as needed ENDOCRINE: Maintain blood glucose between 100-180 at all times. Hypoglycemia protocol in place INFECTIOUS DISEASE: Trend temperature, WBC and procalcitonin level Follow cultures, deescalate antibiotics as soon as possible. Panculture if new onset fever ONCOLOGY/HEMATOLOGY/COAGULATION: Monitor for s/s of bleeding Monitor hemoglobin, coagulation studies as needed SKIN: Pressure ulcer prevention per facility protocol Specialty mattress ORTHO/REHAB: Continue PT/OT Prophylaxis: Continue GI and DVT prophylaxis Code Status: Full Resuscitation Disposition: TBD Other: Total patient care time: 40 minutes BRAD TEAGUE AGPCNP Jan 05, 2024 16:49
[2024-01-05 16:50] VITALS: PULSE 68; RESP 18; O2SAT 99
[2024-01-05] MEDS ORDERED: BACL10TA PO (16:51)
[2024-01-05] MEDS ORDERED: TRAZ-185 PO (16:51)
[2024-01-05] MEDS ORDERED: GABA-1405 PO (16:51)
[2024-01-05] MEDS ORDERED: PIND10TA2 PO (16:51)
[2024-01-05] MEDS ORDERED: GABA-529 PO (16:51)
[2024-01-05] MEDS ORDERED: BUSP5TAB3 PO (16:51)
[2024-01-05] MEDS ORDERED: ROPI0.2535 PO (16:51)
[2024-01-05] MEDS ORDERED: OXYB-66 PO (16:51)
[2024-01-05 17:35] VITALS: BP 159/60; PULSE 63; RESP 18; TEMP 98.2
--- NOTE | 2024-01-05 17:35 | NUR ---
PATIENT ARRIVED TO UNIT VIA STRETCHER. PATIENT IS A&O X3. DAUGHTER AT BEDSIDE. IV TO RT HAND INTACT AND PATENT.
[2024-01-05 18:49] VITALS: PULSE 73; RESP 18; O2SAT 99
[2024-01-05 20:00] VITALS: BP 139/55; PULSE 61; RESP 18; TEMP 98.2
[2024-01-05] MEDS ORDERED: PHARMACY COMMUNICATION MISC SCH (20:30)
[2024-01-05] MEDS ORDERED: GABAPENTIN PO SCH (21:00)
[2024-01-05] MEDS: BACLOFEN 10 MG TABLET PO SCH (21:09)
[2024-01-05] MEDS: LIDOCAINE 5% TOPICAL PATCH TP SCH (21:09)
[2024-01-05 21:10] VITALS: O2SAT 100
[2024-01-05] MEDS: busPIRone HCL 5 MG TABLET PO SCH (21:10)
[2024-01-05] MEDS: trAZOdone HCL 50 MG TAB PO SCH (21:10)
[2024-01-05] MEDS: ropiNIRole HCL 0.25 MG TABLET PO SCH (21:10)
[2024-01-05] MEDS: hydroMORPHone 0.5 MG SYG (0.5MG/0.5ML) IVP PRN (21:13)
--- NOTE | 2024-01-05 22:11 | HMCIMG ---
RIBS UNILAT 2V LT REASON: MECHANICAL FALL TECHNIQUE: 3 views were obtained. FINDINGS: There is no evidence of fracture or dislocation. Underlying lung appears clear. The soft tissues appear unremarkable. There is no evidence of a radiopaque foreign body. IMPRESSION: No acute findings.
--- NOTE | 2024-01-05 22:12 | HMCIMG ---
RIBS UNILAT 2V RT REASON: MECHANICAL FALL TECHNIQUE: 2 views were obtained. FINDINGS: Complex fracture is again noted of the right posterior lateral ninth rib, this consists of 2 adjacent fractures with a 3 cm intervening fragment. Remaining ribs appear intact. Underlying lung appears clear. IMPRESSION: 1. 2 adjacent fractures of the right posterior ninth rib.
[2024-01-06] VITALS (10 sets, daily range): BP systolic 106–152; BP diastolic 47–69; PULSE 62–86; RESP 17–18; TEMP 97.8–98.7; O2SAT 98–99
[2024-01-06 05:21] LABS: BASOPHILS # (AUTO) 0.02 K/uL (0.00-0.20); BASOPHILS % (AUTO) 0.4 % (0.0-5.0); EOSINOPHILS # (AUTO) 0.04 K/uL (0.00-0.70); EOSINOPHILS % (AUTO) 0.9 % (0.0-8.0); HEMATOCRIT 28.6 % (36-48); IMMATURE GRANULOCYTE ABSOLUTE 0.01 K/uL (0-1); LYMPHOCYTES # (AUTO) 0.8 K/uL (1.0-4.8); LYMPHOCYTES % (AUTO) 16.7 % (21.0-51.0); MEAN CORPUSCULAR HEMOGLOBIN 31.6 pg (27.0-33.0); MEAN CORPUSCULAR HGB CONC 33.6 g/dL (32.0-36.0); MEAN CORPUSCULAR VOLUME 94.1 fL (79-99); MONOCYTES # (AUTO) 0.5 K/uL (0.1-1.0); MONOCYTES % (AUTO) 10.5 % (3.0-13.0); NEUTROPHILS # (AUTO) 3.2 K/uL (1.8-7.7); NEUTROPHILS % (AUTO) 71.3 % (40.0-77.0); PLATELET COUNT (AUTO) 177 K/uL (130-400); RED BLOOD CELL COUNT(AUTO) 3.04 MIL/uL (4.00-5.50); RED CELL DISTRIBUTION WIDTH 12.2 % (11.0-15.5); WHITE BLOOD COUNT (AUTO) 4.5 K/uL (4.8-10.8)
[2024-01-06 06:17] LABS: CREATININE 0.8 mg/dL (0.5-1.0); MAGNESIUM 1.4 mg/dL (1.80-2.40); PHOSPHORUS 3.5 mg/dL (2.5-4.9); POTASSIUM 4.2 mmol/L (3.5-5.1)
[2024-01-06 06:18] LABS: ALBUMIN 3.5 g/dL (3.5-5.0); BILIRUBIN,DIRECT 0.1 mg/dL (0.0-0.3); BILIRUBIN,TOTAL 0.3 mg/dL (0.2-1.0); TOTAL PROTEIN, SERUM 6.4 g/dL (6.0-8.3)
--- NOTE | 2024-01-06 06:57 | EKG ---
[facility] Test Date: 2024-01-05 Test Time: 15:33:02 Pat Name: BRYANT SLATER Department: [facility] Room: 422 1 Gender: F Supervisory Clerk: [id number] : 1945 Requested By: CHRISSY LIVINGSTON Order Number: [id number] Reading MD: Edmond Owens Measurements Intervals [place] Rate: 60 P: 46 SD: 148 QRS: 27 QRSD: 86 T: 19 QT: 392 QTc: 392 Interpretive Statements Sinus rhythm Compared to ECG 05/09/2020 01:10:55 No significant changes Electronically Signed On 01-06-2024 15:00:22 RELIGIOUS EDUCATION TEACHER by Edmond Owens Please click the below link to view image of tracing.
[2024-01-06] MEDS: PINDOLOL 5 MG PO SCH (09:00)
[2024-01-06] MEDS ORDERED: GABApentin 100 MG CAPSULE PO SCH (09:00)
[2024-01-06] MEDS: oxyBUTYnin 5 MG TAB.SR.24H PO SCH (09:03)
[2024-01-06] MEDS: GABApentin 100 MG CAPSULE PO SCH (09:03)
[2024-01-06] MEDS: ASPIRIN 81 MG EC TAB PO SCH (09:03)
[2024-01-06] MEDS: PARoxetine HCL 20 MG TABLET PO SCH (09:04)
[2024-01-06] MEDS: HYDROcodone/acetaMINOPHEN 7.5/325 MG TAB PO PRN (09:04)
--- NOTE | 2024-01-06 09:41 | NUR ---
spoke with Dr Antonio regarding new consult. As per Dr Antonio for rib fractures that is to be referred to General surgeon. Dr Wiley has been notified of new consult
--- NOTE | 2024-01-06 09:49 | NUR ---
DCP: HOME Pt reports her last week and services are Friday. Pt not sure if she will be able to attend, states she is in a lot of pain. Sw provided pt emotional support. Pt now lives alone. Prior to fall, pt was active, driving and independent of all her ADLS. Pt has a walker with seat and shower chair. No HH or HD services needed at this time. PCP is Rafael Mccann and [place]. Family to assist as needed, Geri Wills [phone] and Manju Bonilla [phone]. Addendum: 01/06/24 at 0951 by CHRIS ROMERO Amended: Links added.
[2024-01-06] MEDS ORDERED: MAGNESIUM 2GM PREMIX 50ML 50 ML IV PRN (11:00)
[2024-01-06] MEDS: MAGNESIUM 2GM PREMIX 50ML 50 ML IV SCH (11:12)
[2024-01-06] MEDS ORDERED: BENZOCAINE/MENTH/CETYLPYRD CL 1 EACH LOZENGE MM PRN (13:30)
[2024-01-06 13:59] LABS: COVID19 (SARS ANTIGEN RAPID) PRESUMPTIVE NEGATIVE (NEGATIVE); INFLUENZA TYPE A Negative For Type A (NEGATIVE); INFLUENZA TYPE B Negative For Type B (NEGATIVE)
--- NOTE | 2024-01-06 14:32 | PN ---
[facility] PROGRESS NOTE Date Patient Seen: Jan 06, 2024 Time of Visit: 14:32 Supervising Physician: [Dr. Goode] Primary Care Physician: [Dr. Marc Mccann ] Outpatient Specialists: [Dr. Christian-nephro, Dr. Stephens-cardiology] Inpatient Consults: [Dr. Antonio-ortho ] PROBLEM LIST: Complex right posterior 9th rib fracture-POA S/p Mechanical fall-POA Depression and grieving 2/2 of her -POA DNR, no suicide thoughts or ideation -POA Hypomagnesemia-POA Anxiety disorder Hypotension Diabetes mellitus Chronic anemia Chronic bronchitis Osteoporosis Left kidney cancer s/p cryoablation PLAN: Consult general surgery -Multimodal pain management -PT/OT to eval and treat -I.S. q1H x 10 while awake -Monitor electrolytes, replete PRN Given multiple falls, will recommend PT and possible SNF INTERVAL HISTORY: [Patient was admitted for evaluation after sustaining fall he should complained of back pain upon arrival. Patient admits frequent falls and previous months with possible syncopal episodes. However the incident prior to admission occurred after patient tripped causing a fall. Her labs on admission including CBC BNP were unremarkable, CK is 218, troponin 17, BNP 77. Her INR was 103. A CT of the chest revealed two contiguous fractures in the left posterior 9th rib with one nondisplaced and the other displaced. She continues with IS at bedside. No current fever or cough. Orthopedic surgery was consulted but is recommending general surgery evaluation.] REVIEW OF SYSTEMS: 12 point ROS reviewed with patient. Pertinent positives mentioned above. Otherwise negative. PHYSICAL EXAM: GENERAL: alert, weak, awake oriented x 3 HEENT: EOMI, Sclera non icteric, moist mucosa NECK: Supple, no JVD, trachea midline LUNGS: Clear breath sounds bilaterally. No wheezes, pain with deep inspiration HEART: Regular rate and rhythm. Normal S1 and S2, without murmurs ABD: Abdomen soft, nontender. Bowel sounds present EXT: No clubbing cyanosis or edema NEURO: Alert and oriented to person, follows commands Vital Signs (last 8hr) Date Time Temp Pulse Resp B/P (MAP) Pulse Ox O2 Delivery O2 Flow Rate FiO2 01/06/24 11:36 98.8 75 18 116/47 98 Room Air 21 01/06/24 08:00 99 Room Air* 0 21 01/06/24 07:05 98.4 66 18 106/48 99 Room Air 21 LABS: Hematology Labs: Test 01/06/24 05:03 Range/Units White Blood Count 4.5 L 4.8-10.8 K/uL Red Blood Count 3.04 L 4.00-5.50 MIL/uL Hemoglobin 9.6 L 12.0-16.0 g/dL Hematocrit 28.6 L 36-48 % Mean Corpuscular Volume 94.1 79-99 fL Mean Corpuscular Hemoglobin 31.6 27.0-33.0 pg Mean Corpuscular Hemoglobin Concent 33.6 32.0-36.0 g/dL Red Cell Distribution Width 12.2 11.0-15.5 % Platelet Count 177 130-400 K/uL Mean Platelet Volume 9.2 7.5-10.5 fL Immature Granulocyte % (Auto) 0.2 0-1 % Neutrophils (%) (Auto) 71.3 40.0-77.0 % Lymphocytes (%) (Auto) 16.7 L 21.0-51.0 % Monocytes (%) (Auto) 10.5 3.0-13.0 % Eosinophils (%) (Auto) 0.9 0.0-8.0 % Basophils (%) (Auto) 0.4 0.0-5.0 % Neutrophils # (Auto) 3.2 1.8-7.7 K/uL Lymphocytes # (Auto) 0.8 L 1.0-4.8 K/uL Monocytes # (Auto) 0.5 0.1-1.0 K/uL Eosinophils # (Auto) 0.04 0.00-0.70 K/uL Basophils # (Auto) 0.02 0.00-0.20 K/uL Absolute Immature Granulocyte (auto 0.01 0-1 K/uL Nucleated Red Blood Cells 0.0 0.0-0.19 % Chemistry Labs: Test 01/06/24 11:01 01/06/24 05:03 01/05/24 14:58 Range/Units Whole Blood Glucose 186 H 70-110 MG/DL Sodium Level 138 136-145 mmol/L Potassium Level 4.2 3.5-5.1 mmol/L Chloride Level 103 101-111 mmol/L Carbon Dioxide Level 26 21-32 mmol/L Blood Urea Nitrogen 18 7-18 mg/dL Creatinine 0.8 0.5-1.0 mg/dL Glomerular Filtration Rate Calc 74 >90 mL/min Random Glucose 135 H 70-105 mg/dL Total Calcium 8.9 8.5-10.1 mg/dL Phosphorus Level 3.5 2.5-4.9 mg/dL Magnesium Level 1.40 L 1.80-2.40 mg/dL Total Bilirubin 0.3 0.2-1.0 mg/dL Direct Bilirubin 0.1 0.0-0.3 mg/dL Aspartate Amino Transf (AST/SGOT) 23 10-37 U/L Alanine Aminotransferase (ALT/SGPT) 22 12-78 U/L Alkaline Phosphatase 47 L 50-136 U/L Total Protein 6.4 6.0-8.3 g/dL Albumin 3.5 3.5-5.0 g/dL Total Creatine Kinase 218 # 21-232 U/L Troponin I High Sensitivity 17 4-50 ng/L B-Type Natriuretic Peptide 77 0-100 pg/mL Coagulation Labs: Test 01/05/24 14:58 Range/Units Prothrombin Time 11.1 9.6-11.6 SEC Prothromb Time International Ratio 1.03 0.85-1.15 Activated Partial Thromboplast Time 26.9 26.3-35.5 SEC DIAGNOSTICS / RADIOLOGY RESULTS: [CT CHEST ABDOMEN W/O CONTRAST REASON: mechanical fall , impact to head COMPARISON: 05/03/2021 TECHNIQUE: Images are obtained from thoracic inlet through the iliac crests. Sagittal and coronal reconstruction images were performed. FINDINGS: There is a complex fracture of the ninth posterior rib. This includes a nondisplaced fracture, there is a 3 cm long fragment followed by a second to displaced rib fracture. Remaining ribs appear intact as do the sternum and the thoracic spine. Lungs are clear. There is no evidence of contusion or laceration. There is no pneumothorax or pleural effusion. Heart size is normal with no vascular congestion, there is extensive coronary artery calcification. Chest wall structures appear otherwise unremarkable. There are no focal liver lesions. Spleen, right kidney and pancreas appear normal. There is a complex mass extending posteriorly from the midportion of the left kidney. This measures 3.2 cm greatest axial dimension. This was visible on previous exam 05/03/2021 as a noncalcified 4.7 cm soft tissue mass. Findings are consistent with a treated hypernephroma. Residual tumor cannot be excluded by this exam. Gallbladder is absent. The common duct is markedly distended at 1.4 cm. There are no visible stones. Bowel loops appear normal. There is no free air or fluid. There are no focal fluid collections. There is a small ventral hernia just to the left of midline in the periumbilical region. There are surgical changes in the lower lumbar spine. IMPRESSION: 1. There are 2 contiguous fractures in the left posterior ninth rib, 1 nondisplaced and second displaced. 2. No other acute finding in the chest or abdomen. 3. 3.2 cm partially calcified mass posterior margin of the left kidney, appearance consistent with a treated hypernephroma as described above. 4. Absent gallbladder, the common duct is dilated at 1.2 cm, the pancreas appears unremarkable.] PLAN NEURO: Minimize central acting medications as possible. Maintain fall precautions, adequate lighting during the day PULMONARY: Supplemental 02 as needed. Maintain aspiration precautions at all times CARDIOVASCULAR: Follow hemodynamics. Vital signs per facility protocol GI & NUTRITION: Continue with nutritional support. Continue stool softeners and laxatives as needed. KIDNEYS & ELECTROLYTES: Strict monitoring of intake, output and overall fluid balance. Avoid nephrotoxic medications to the extent possible. Medications to be dosed according to renal function. Monitor electrolytes and replace as needed ENDOCRINE: Maintain blood glucose between 100-180 at all times. Hypoglycemia protocol in place INFECTIOUS DISEASE: Trend temperature, WBC and procalcitonin level Follow cultures, deescalate antibiotics as soon as possible. Panculture if new onset fever ONCOLOGY/HEMATOLOGY/COAGULATION: Monitor for s/s of bleeding Monitor hemoglobin, coagulation studies as needed SKIN: Pressure ulcer prevention per facility protocol Specialty mattress ORTHO/REHAB: Continue PT/OT Prophylaxis: Continue GI and DVT prophylaxis Code Status: Full Resuscitation Disposition: TBD Other: Total patient care time: 40 minutes ANTONINA FAJARDO Jan 06, 2024 14:32
--- NOTE | 2024-01-06 19:46 | CONS ---
GENERAL SURGERY CONSULTATION NOTE DATE OF CONSULTATION: Jan 06, 2024 TIME OF CONSULTATION: 19:43 CONSULTING SERVICE: Hunter Kirby MD REQUESTING PHYSICAIN: [ ] REASON FOR CONSULTATION: [ ] Fall Rib fracture HISTORY OF PRESENT ILLNESS: [ ] 78-year-old pleasant lady who accidentally fell at home She says she tripped and landed on her shoulder/rib area and buttock She denied any loss of consciousness PAST MEDICAL HISTORY: Depression and grieving 2/2 of her -POA DNR, no suicide thoughts or ideation -POA Hypomagnesemia-POA Anxiety disorder Hypotension Diabetes mellitus Chronic anemia Chronic bronchitis Osteoporosis Left kidney cancer s/p cryoablation PAST SURGICAL HISTORY: [ ] None FAMILY HISTORY: [ ] No family history of hypertension or diabetes SOCIAL HISTORY: [ ] No smoking No alcohol Current Medications Medications (Trade) Dose Ordered Sig/Elvira Route Start Time Stop Time Status Last Admin Dose Admin Aspirin (Aspirin 81mg Ec Tab) 81 mg DAILY PO 01/06/24 09:00 02/05/24 08:59 01/06/24 09:03 81 MG Baclofen (Baclofen) 10 mg BID PO 01/05/24 21:00 02/04/24 20:59 01/06/24 09:04 10 MG Buspirone HCl (BUspar) 5 mg BID PO 01/05/24 21:00 02/04/24 20:59 01/06/24 09:03 5 MG Gabapentin (NEURontin 100 mg CAP) 100 mg BID PO 01/05/24 21:00 01/05/24 23:45 DC Gabapentin (NEURontin 100 mg CAP) 100 mg DAILY08 PO 01/06/24 08:00 02/04/24 20:59 01/06/24 09:03 100 MG Gabapentin (NEURontin 100 mg CAP) 100 mg ONCE PO 01/05/24 15:00 01/05/24 15:06 DC Gabapentin (NEURontin 100 mg CAP) 300 mg DAILY PO 01/06/24 09:00 01/05/24 23:45 DC Gabapentin (NEURontin 300 MG CAP) 300 mg DAILY20 PO 01/06/24 20:00 02/05/24 19:59 Home Med (Home Medication) DAILY PO 01/06/24 09:00 02/05/24 08:59 Lidocaine (Lidoderm Patch 5%) 1 patch DAILY TP 01/05/24 17:00 02/04/24 16:59 01/06/24 09:04 1 PATCH Magnesium Sulfate 50 ml @ 0 mls/hr PROTOCOL IV 01/05/24 17:00 01/06/24 11:21 DC 01/06/24 11:12 25 MLS/HR Miscellaneous Medication (Gabapentin ) 1 tab HS PO 01/05/24 21:00 01/06/24 00:29 DC Oxybutynin Chloride (ditROPAN XL) 5 mg DAILY PO 01/06/24 09:00 02/05/24 08:59 01/06/24 09:03 5 MG Paroxetine HCl (PAxil 20 MG TABLET) 10 mg DAILY PO 01/06/24 09:00 02/05/24 08:59 01/06/24 09:04 10 MG Pharmacy Profile Note (Pharmacy Communication) 1 each ONCE MISC 01/05/24 20:30 01/06/24 00:32 DC Ropinirole HCl (ropiNIRole HCL) 0.25 mg HS PO 01/05/24 21:00 02/04/24 20:59 01/05/24 21:10 0.25 MG Tramadol HCl (UltRAM) 50 mg Q6H PO 01/05/24 16:00 01/05/24 20:23 DC Trazodone HCl (DesyREL/OlepTRO) 50 mg HS PO 01/05/24 21:00 02/04/24 20:59 01/05/24 21:10 50 MG Allergies: Coded Allergies: No Known Drug Allergies (Unverified Allergy, Unknown, 06/11/17) REVIEW OF SYSTEMS: PREMIUM SERVICE REPRESENTATIVE: [Denies headaches or blurring of vision.] RESP: [No cough, chest pain or SOB.] CVS: [No palpitaions.] GI: No [abdominal pain with nausea and vomiting, no diarrhea or constipation.] SHANI: [No dysuria or hematuria.] Musculoskeletal: [No swelling or joint pain.] BACK: [No pain or swelling.] All other systems are reviewed and essentially negative pertinent positives in HPI. PHYSICAL EXAMINATION: GENERAL: [Patient is lying comfortably in bed, not in any obvious distress.] HEAD: [Normal with no signs of head trauma.] EYES: [Not pale not jaundiced afebrile to touch.] ENT: [ Normal.] NECK: [Supple,no tenderness,no lymphadenopathy,no masses,no thyromegaly ,no bruits, no JVD.] LUNGS: [Clear breath sounds bilaterally. No wheezes, rales, or rhonchi.] Chest tender chest wall HEART: [Regular rate and rhythm. Normal S1 and S2, without murmurs, rub or gallop.] VASC: [No edema. Peripheral pulses normal and equal in all extremities.] ABD: Benign.] : [Normal, no suprapubic tenderness.] LYMPH: [No lymphadenopathy noted.] EXT: [ Warm soft, non tender.] SKIN: [ No rashes or lesions.] NEURO: [ Awake Alert and oriented x3.] Vital Signs (last 8hr) Date Time Temp Pulse Resp B/P (MAP) Pulse Ox O2 Delivery O2 Flow Rate FiO2 01/06/24 15:05 98.6 75 18 152/69 99 Room Air 21 LABORATORY: [ ] Hematology Labs: Test 01/06/24 05:03 Range/Units White Blood Count 4.5 L 4.8-10.8 K/uL Red Blood Count 3.04 L 4.00-5.50 MIL/uL Hemoglobin 9.6 L 12.0-16.0 g/dL Hematocrit 28.6 L 36-48 % Mean Corpuscular Volume 94.1 79-99 fL Mean Corpuscular Hemoglobin 31.6 27.0-33.0 pg Mean Corpuscular Hemoglobin Concent 33.6 32.0-36.0 g/dL Red Cell Distribution Width 12.2 11.0-15.5 % Platelet Count 177 130-400 K/uL Mean Platelet Volume 9.2 7.5-10.5 fL Immature Granulocyte % (Auto) 0.2 0-1 % Neutrophils (%) (Auto) 71.3 40.0-77.0 % Lymphocytes (%) (Auto) 16.7 L 21.0-51.0 % Monocytes (%) (Auto) 10.5 3.0-13.0 % Eosinophils (%) (Auto) 0.9 0.0-8.0 % Basophils (%) (Auto) 0.4 0.0-5.0 % Neutrophils # (Auto) 3.2 1.8-7.7 K/uL Lymphocytes # (Auto) 0.8 L 1.0-4.8 K/uL Monocytes # (Auto) 0.5 0.1-1.0 K/uL Eosinophils # (Auto) 0.04 0.00-0.70 K/uL Basophils # (Auto) 0.02 0.00-0.20 K/uL Absolute Immature Granulocyte (auto 0.01 0-1 K/uL Nucleated Red Blood Cells 0.0 0.0-0.19 % Chemistry Labs: Test 01/06/24 16:04 01/06/24 05:03 01/05/24 14:58 Range/Units Whole Blood Glucose 139 H 70-110 MG/DL Sodium Level 138 136-145 mmol/L Potassium Level 4.2 3.5-5.1 mmol/L Chloride Level 103 101-111 mmol/L Carbon Dioxide Level 26 21-32 mmol/L Blood Urea Nitrogen 18 7-18 mg/dL Creatinine 0.8 0.5-1.0 mg/dL Glomerular Filtration Rate Calc 74 >90 mL/min Random Glucose 135 H 70-105 mg/dL Total Calcium 8.9 8.5-10.1 mg/dL Phosphorus Level 3.5 2.5-4.9 mg/dL Magnesium Level 1.40 L 1.80-2.40 mg/dL Total Bilirubin 0.3 0.2-1.0 mg/dL Direct Bilirubin 0.1 0.0-0.3 mg/dL Aspartate Amino Transf (AST/SGOT) 23 10-37 U/L Alanine Aminotransferase (ALT/SGPT) 22 12-78 U/L Alkaline Phosphatase 47 L 50-136 U/L Total Protein 6.4 6.0-8.3 g/dL Albumin 3.5 3.5-5.0 g/dL Total Creatine Kinase 218 # 21-232 U/L Troponin I High Sensitivity 17 4-50 ng/L B-Type Natriuretic Peptide 77 0-100 pg/mL Coagulation Labs: Test 01/05/24 14:58 Range/Units Prothrombin Time 11.1 9.6-11.6 SEC Prothromb Time International Ratio 1.03 0.85-1.15 Activated Partial Thromboplast Time 26.9 26.3-35.5 SEC DIAGNOSTICS / RADIOLOGY: [Copy/Paste Echos/Imaging Report here] ASSESSMENT: Fall Rib fracture PLAN: Ensure adequate pain control HUNTER Sagastume MD Jan 06, 2024 19:46
[2024-01-06] MEDS: GABAPENTIN 300 MG CAPSULE PO SCH (20:27)
[2024-01-06] MEDS: guaiFENesin-DM 200/20MG 10ML PO PRN (21:56)
[2024-01-07] VITALS (9 sets, daily range): BP systolic 110–134; BP diastolic 49–73; PULSE 66–100; RESP 16–20; TEMP 97.8–98.7; O2SAT 97–99
--- NOTE | 2024-01-07 10:03 | PN ---
[facility] PROGRESS NOTE Date Patient Seen: Jan 07, 2024 Time of Visit: 09:59 Supervising Physician: [Dr. Goode] Primary Care Physician: [Dr. Marc Mccann ] Outpatient Specialists: [Dr. Christian-nephro, Dr. Stephens-cardiology] Inpatient Consults: [Dr. Antonio-ortho ] PROBLEM LIST: Complex right posterior 9th rib fracture-POA S/p Mechanical fall-POA Depression and grieving 2/2 of her -POA DNR, no suicide thoughts or ideation -POA Hypomagnesemia-POA Anxiety disorder Hypotension Diabetes mellitus Chronic anemia Chronic bronchitis Osteoporosis Left kidney cancer s/p cryoablation PLAN: No surgery planned per general surgery Repeat CXR in AM -Multimodal pain management -PT/OT to eval and treat -I.S. q1H x 10 while awake -Monitor electrolytes, replete PRN Given multiple falls, will recommend PT and SNF INTERVAL HISTORY: [Patient was admitted for evaluation after sustaining fall he should complained of back pain upon arrival. Patient admits frequent falls and previous months with possible syncopal episodes. However the incident prior to admission occurred after patient tripped causing a fall. Her labs on admission including CBC BNP were unremarkable, CK is 218, troponin 17, BNP 77. Her INR was 103. A CT of the chest revealed two contiguous fractures in the left posterior 9th rib with one nondisplaced and the other displaced. She continues with IS at bedside. No current fever or cough. Orthopedic surgery was consulted but is recommending general surgery evaluation.] 01/06 patient is evaluated at bedside. She admits decreased pain, continues with IS. Labs and vitals are reviewed and are within normal limits, no signs or symptoms of infection. She was evaluated by General surgery with no plans for surgical intervention. Patient admits feeling weak and deconditioned, is wanting SNF for continued physical therapy due to living alone. Patient states her one week ago. REVIEW OF SYSTEMS: 12 point ROS reviewed with patient. Pertinent positives mentioned above. O therwise negative. PHYSICAL EXAM: GENERAL: alert, weak, awake oriented x 3 HEENT: EOMI, Sclera non icteric, moist mucosa NECK: Supple, no JVD, trachea midline LUNGS: Clear breath sounds bilaterally. No wheezes, pain with deep inspiration HEART: Regular rate and rhythm. Normal S1 and S2, without murmurs ABD: Abdomen soft, nontender. Bowel sounds present EXT: No clubbing cyanosis or edema NEURO: Alert and oriented to person, follows commands Vital Signs (last 8hr) Date Time Temp Pulse Resp B/P (MAP) Pulse Ox O2 Delivery O2 Flow Rate FiO2 01/07/24 08:28 98.4 71 16 134/55 99 Room Air 01/07/24 06:28 75 18 N/A Room Air 21 01/07/24 04:31 98.2 73 17 110/49 98 Room Air 21 LABS: Hematology Labs: Test 01/06/24 05:03 Range/Units White Blood Count 4.5 L 4.8-10.8 K/uL Red Blood Count 3.04 L 4.00-5.50 MIL/uL Hemoglobin 9.6 L 12.0-16.0 g/dL Hematocrit 28.6 L 36-48 % Mean Corpuscular Volume 94.1 79-99 fL Mean Corpuscular Hemoglobin 31.6 27.0-33.0 pg Mean Corpuscular Hemoglobin Concent 33.6 32.0-36.0 g/dL Red Cell Distribution Width 12.2 11.0-15.5 % Platelet Count 177 130-400 K/uL Mean Platelet Volume 9.2 7.5-10.5 fL Immature Granulocyte % (Auto) 0.2 0-1 % Neutrophils (%) (Auto) 71.3 40.0-77.0 % Lymphocytes (%) (Auto) 16.7 L 21.0-51.0 % Monocytes (%) (Auto) 10.5 3.0-13.0 % Eosinophils (%) (Auto) 0.9 0.0-8.0 % Basophils (%) (Auto) 0.4 0.0-5.0 % Neutrophils # (Auto) 3.2 1.8-7.7 K/uL Lymphocytes # (Auto) 0.8 L 1.0-4.8 K/uL Monocytes # (Auto) 0.5 0.1-1.0 K/uL Eosinophils # (Auto) 0.04 0.00-0.70 K/uL Basophils # (Auto) 0.02 0.00-0.20 K/uL Absolute Immature Granulocyte (auto 0.01 0-1 K/uL Nucleated Red Blood Cells 0.0 0.0-0.19 % Chemistry Labs: Test 01/07/24 05:21 01/06/24 05:03 01/05/24 14:58 Range/Units Whole Blood Glucose 132 H 70-110 MG/DL Sodium Level 138 136-145 mmol/L Potassium Level 4.2 3.5-5.1 mmol/L Chloride Level 103 101-111 mmol/L Carbon Dioxide Level 26 21-32 mmol/L Blood Urea Nitrogen 18 7-18 mg/dL Creatinine 0.8 0.5-1.0 mg/dL Glomerular Filtration Rate Calc 74 >90 mL/min Random Glucose 135 H 70-105 mg/dL Total Calcium 8.9 8.5-10.1 mg/dL Phosphorus Level 3.5 2.5-4.9 mg/dL Magnesium Level 1.40 L 1.80-2.40 mg/dL Total Bilirubin 0.3 0.2-1.0 mg/dL Direct Bilirubin 0.1 0.0-0.3 mg/dL Aspartate Amino Transf (AST/SGOT) 23 10-37 U/L Alanine Aminotransferase (ALT/SGPT) 22 12-78 U/L Alkaline Phosphatase 47 L 50-136 U/L Total Protein 6.4 6.0-8.3 g/dL Albumin 3.5 3.5-5.0 g/dL Total Creatine Kinase 218 # 21-232 U/L Troponin I High Sensitivity 17 4-50 ng/L B-Type Natriuretic Peptide 77 0-100 pg/mL Coagulation Labs: Test 01/05/24 14:58 Range/Units Prothrombin Time 11.1 9.6-11.6 SEC Prothromb Time International Ratio 1.03 0.85-1.15 Activated Partial Thromboplast Time 26.9 26.3-35.5 SEC DIAGNOSTICS / RADIOLOGY RESULTS: [Reviewed] PLAN NEURO: Minimize central acting medications as possible. Maintain fall precautions, adequate lighting during the day PULMONARY: Supplemental 02 as needed. Maintain aspiration precautions at all times CARDIOVASCULAR: Follow hemodynamics. Vital signs per facility protocol GI & NUTRITION: Continue with nutritional support. Continue stool softeners and laxatives as needed. KIDNEYS & ELECTROLYTES: Strict monitoring of intake, output and overall fluid balance. Avoid nephrotoxic medications to the extent possible. Medications to be dosed according to renal function. Monitor electrolytes and replace as needed ENDOCRINE: Maintain blood glucose between 100-180 at all times. Hypoglycemia protocol in place INFECTIOUS DISEASE: Trend temperature, WBC and procalcitonin level Follow cultures, deescalate antibiotics as soon as possible. Panculture if new onset fever ONCOLOGY/HEMATOLOGY/COAGULATION: Monitor for s/s of bleeding Monitor hemoglobin, coagulation studies as needed SKIN: Pressure ulcer prevention per facility protocol Specialty mattress ORTHO/REHAB: Continue PT/OT Prophylaxis: Continue GI and DVT prophylaxis Code Status: Full Resuscitation Disposition: TBD Other: Total patient care time: 40 minutes ANTONINA FAJARDO Jan 07, 2024 10:02
--- NOTE | 2024-01-07 12:40 | HMCIMG ---
CHEST 1VW REASON: atelectasis COMPARISON: 01/05/2024 FINDINGS: Single view of the chest was obtained. Lungs are clear. Heart size is normal. There is no pulmonary vascular congestion. Mediastinum and bony thorax appear unremarkable. Posterior column stimulator leads are noted in the midthoracic spine. IMPRESSION: 1. No acute finding, no change.
[2024-01-08 03:48] VITALS: BP 107/53; PULSE 69; RESP 18; TEMP 97.7
[2024-01-08 07:50] VITALS: BP 118/55; PULSE 69; RESP 17; TEMP 97.8
[2024-01-08 08:07] VITALS: O2SAT 98
[2024-01-08] MEDS: acetaMINOPHEN 325 MG TAB PO PRN (08:07)
[2024-01-08 11:23] VITALS: BP 127/58; PULSE 75; RESP 18; TEMP 98.1
--- NOTE | 2024-01-08 12:53 | PN ---
[facility] PROGRESS NOTE Date Patient Seen: Jan 08, 2024 Time of Visit: 12:53 Supervising Physician: [ ] Primary Care Physician: [Dr. Marc Mccann ] Outpatient Specialists: [Dr. Christian-nephro, Dr. Stephens-cardiology] Inpatient Consults: [Dr. Antonio-ortho ] PROBLEM LIST: Complex right posterior 9th rib fracture-POA S/p Mechanical fall-POA Depression and grieving 2/2 of her -POA DNR, no suicide thoughts or ideation -POA Hypomagnesemia-POA Anxiety disorder Hypotension Diabetes mellitus Chronic anemia Chronic bronchitis Osteoporosis Left kidney cancer s/p cryoablation PLAN: No surgery planned per general surgery Repeat CXR in AM -Multimodal pain management -PT/OT to eval and treat -I.S. q1H x 10 while awake -Monitor electrolytes, replete PRN Given multiple falls, will recommend PT and SNF INTERVAL HISTORY: [Patient was admitted for evaluation after sustaining fall he should complained of back pain upon arrival. Patient admits frequent falls and previous months with possible syncopal episodes. However the incident prior to admission occurred after patient tripped causing a fall. Her labs on admission including CBC BNP were unremarkable, CK is 218, troponin 17, BNP 77. Her INR was 103. A CT of the chest revealed two contiguous fractures in the left posterior 9th rib with one nondisplaced and the other displaced. She continues with IS at bedside. No current fever or cough. Orthopedic surgery was consulted but is recommending general surgery evaluation.] 01/06 patient is evaluated at bedside. She admits decreased pain, continues with IS. Labs and vitals are reviewed and are within normal limits, no signs or symptoms of infection. She was evaluated by General surgery with no plans for surgical intervention. Patient admits feeling weak and deconditioned, is wanting SNF for continued physical therapy due to living alone. Patient states her one week ago. REVIEW OF SYSTEMS: 12 point ROS reviewed with patient. Pertinent positives mentioned above. Otherwise negative. PHYSICAL EXAM: GENERAL: alert, weak, awake oriented x 3 HEENT: EOMI, Sclera non icteric, moist mucosa NECK: Supple, no JVD, trachea midline LUNGS: Clear breath sounds bilaterally. No wheezes, pain with deep inspiration HEART: Regular rate and rhythm. Normal S1 and S2, without murmurs ABD: Abdomen soft, nontender. Bowel sounds present EXT: No clubbing cyanosis or edema NEURO: Alert and oriented to person, follows commands Vital Signs (last 8hr) Date Time Temp Pulse Resp B/P (MAP) Pulse Ox O2 Delivery O2 Flow Rate FiO2 01/08/24 11:23 98.1 75 18 127/58 98 Room Air 01/08/24 08:07 98 Room Air* 0 21 01/08/24 07:50 97.9 69 17 118/55 98 Room Air LABS: Chemistry Labs: Test 01/08/24 11:03 Range/Units Whole Blood Glucose 149 H 70-110 MG/DL DIAGNOSTICS / RADIOLOGY RESULTS: [ ] PLAN NEURO: Minimize central acting medications as possible. Maintain fall precautions, adequate lighting during the day PULMONARY: Supplemental 02 as needed. Maintain aspiration precautions at all times CARDIOVASCULAR: Follow hemodynamics. Vital signs per facility protocol GI & NUTRITION: Continue with nutritional support. Continue stool softeners and laxatives as needed. KIDNEYS & ELECTROLYTES: Strict monitoring of intake, output and overall fluid balance. Avoid nephrotoxic medications to the extent possible. Medications to be dosed according to renal function. Monitor electrolytes and replace as needed ENDOCRINE: Maintain blood glucose between 100-180 at all times. Hypoglycemia protocol in place INFECTIOUS DISEASE: Trend temperature, WBC and procalcitonin level Follow cultures, deescalate antibiotics as soon as possible. Panculture if new onset fever ONCOLOGY/HEMATOLOGY/COAGULATION: Monitor for s/s of bleeding Monitor hemoglobin, coagulation studies as needed SKIN: Pressure ulcer prevention per facility protocol Specialty mattress ORTHO/REHAB: Continue PT/OT Prophylaxis: Continue GI and DVT prophylaxis Code Status: Full Resuscitation Disposition: TBD Other: Total patient care time: 40 minutes ANTONINA FAJARDO Jan 08, 2024 12:53
[2024-01-08 15:48] VITALS: BP 126/77; PULSE 71; RESP 18; TEMP 98.2
--- NOTE | 2024-01-08 16:31 | NUR ---
CM NOTE CM f/u with patient regarding d/c planning. Patient is considering SNF placement vs returning home to attend a celebration of life ceremony for her . CM explained that patient can return home and f/u with PCP on Friday for possible home health arrangements. CM notified patient that nurse may only visit patient weekly or prn as ordered by MD. Explained that nurse will not be with patient 02/09. CM also explained that physical therapy can follow patient but visits may be limited to 3 times/week. Patient verbalized understanding. Patient voiced concerns about staying home alone. CM asked about staying with family member. Patient does not want to stay with daughters. CM discussed possible private paying for sitter. States she will discuss with daughter and see if this is an option. CM explained if patient decides on SNF, referral will be sent and authorization will be pending possibly over the weekend. Also notified patient that insurance may deny request but an attempt can be made. States she will discuss everything with daughter again. CM then received call from magalis Manju Bonilla [phone]. CM again explained above options. States she will be speaking with patient and call CM back with final decision. Halle LABOY updated and will discharge patient today if wanting to return home.
--- NOTE | 2024-01-08 21:02 | DS ---
[facility] DISCHARGE SUMMARY Date Patient Seen: Jan 08, 2024 Time of Visit: 21:02 Supervising Physician: [Dr. Goode] Primary Care Physician: [Dr. Marc Mccann ] Outpatient Specialists: [Dr. Christian-nephro, Dr. Stephens-cardiology] Inpatient Consults: [Dr. Antonio-ortho ] PROBLEM LIST: Complex right posterior 9th rib fracture-POA S/p Mechanical fall-POA Depression and grieving 2/2 of her -POA DNR, no suicide thoughts or ideation -POA Hypomagnesemia-POA Anxiety disorder Hypotension Diabetes mellitus Chronic anemia Chronic bronchitis Osteoporosis Left kidney cancer s/p cryoablation PLAN: No surgical intervention per general surgery -Multimodal pain management -PT/OT to eval and treat -I.S. q1H x 10 while awake Given multiple falls, patient was recommended for SNF but declined HOSPITAL COURSE: HPI (per admitting provider) Patient is a 78-year-old female with PMH significant for anxiety, depression, diabetes, anemia, chronic bronchitis, osteoporosis and left kidney cancer status post cryoablation was presented at the ED concerning mechanical fall. Patient claims that her just recently and she was sorting out his personal stuff in the room when her foot got tangled on some bed sheets leading to the fall hitting her right side. She denies dizziness or syncopal episode and claims it was an accident. At the ED, her preliminary laboratory was unremarkable except for mild hypomagnesemia. Imaging studies on the head, chest, hip, pelvis and toes are negative acute fracture or dislocation. Chest CT revealed 2 contiguous fractures in the left posterior ninth rib, nondisplaced and second displaced. 3.2 cm partially calcified mass posterior margin of the left kidney, appearance consistent with a treated hypernephroma, absent gallbladder, the common duct is dilated, the pancreas appears unremarkable. Otherwise, negative for acute intra-abdominal findings. Patient claims that there is nothing wrong with her left chest already and the pain was coming from her right posterior ribs and showed me some skin abrasion. Orthopedic surgery was consulted but recommended general surgery evaluation. General surgery was consulted and recommended no surgical intervention. Patient sustained a mechanical fall after tripping. She stated she feared going back home as she lives alone and her 1 week ago. She was recommended for SNF and was pending approval. However, she stated that her 's service was going to be the following day 01/08 and she would rather discharge home to make the service. She was then recommended to establish home health for physical therapy. Patient and daughter verbalized agreement. CHRONIC PROBLEMS: continue previous management per PCP unless otherwise indicated STITCH MARKER FINDINGS/RECOMMENDATIONS: [No surgical intervention] DISCHARGE MEDICATIONS: Continue all current medications as previously prescribed. Pt hemodynamically stable and afebrile at time of discharge. PCP notified of patients admission, hospital course and discharge. Continued Medications: Acetaminophen (Tylenol) 325 Mg Tablet 2 TAB PO TID, TAB Alendronate Sodium (Alendronate Sodium) 70 Mg Tablet 70 MG PO WKLY, TAB Aspirin (Aspir-Low) 81 Mg Tablet.dr 81 MG PO DAILY, TAB Atorvastatin Calcium (Atorvastatin Calcium) 40 Mg Tablet 40 MG PO DAILY, TAB Baclofen (Baclofen) 10 Mg Tablet 10 MG PO BID, TAB Biotin (Biotin) 5,000 Mcg Tab.rapdis 5000 MCG PO DAILY, TAB Buspirone HCl (Buspirone HCl) 5 Mg Tablet 1 TAB PO BID for 30 Days, #60 TAB 0 Refills [Fish Oil ] () Unknown Dose PO AD [Fluticasone] () 50 MCG PUFF BID 1 PUFF Gabapentin (Gabapentin) 100 Mg Capsule 300 MG PO DAILY, CAP Gabapentin (Gabapentin) 600 Mg Tablet 1 TAB PO HS for 30 Days, #90 TAB 0 Refills Glipizide/Metformin HCl (Glipizide-Metformin 5-500 mg) 1 Each Tablet 1 EACH PO BID, TAB Imipramine Pamoate (Imipramine Pamoate) 75 Mg Capsule 75 MG PO HS, CAP Insulin Glargine,Hum.rec.anlog (Lantus Solostar) 100 Unit/1 Ml Insuln.pen 50 UNIT SQ AD, SYRINGE Insulin Lispro (Humalog Kwikpen) 200 Unit/1 Ml Insuln.pen 30 UNIT SQ AD, SYRINGE [Iron] () 65 MG PO WKLY Lisinopril (Lisinopril) 2.5 Mg Tablet 2.5 MG PO DAILY, TAB Loratadine (Loratadine) 10 Mg Capsule 10 MG PO AD, CAP Metformin HCl (Metformin HCl) 500 Mg Tablet 500 MG PO TID, TAB Oxybutynin Chloride (Oxybutynin Chloride) 5 Mg Tablet 5 MG PO BID, TAB Oxybutynin Chloride (Oxybutynin Chloride ER) 5 Mg Tab.er.24 1 TAB PO DAILY for 30 Days, #30 TAB 0 Refills Paroxetine HCl (Paroxetine HCl) 10 Mg Tablet 1 TAB PO DAILY for 30 Days, #30 TAB 0 Refills Pindolol (Pindolol) 10 Mg Tablet 5 MG PO DAILY, TAB [Qva] () 40 MCG PUFF BID 1 PUFF Ropinirole HCl (Ropinirole HCl) 0.25 Mg Tablet 1 TAB PO HS for 30 Days, #30 TAB 0 Refills Trazodone HCl (Trazodone HCl) 50 Mg Tablet 1 TAB PO HS for 30 Days, #30 TAB 0 Refills [Tussin Cough ] () Unknown Dose PO AD [Vibrid] () 10 MG PO AD PHYSICAL EXAM: GENERAL: alert, weak, awake oriented x 3 HEENT: EOMI, Sclera non icteric, moist mucosa NECK: Supple, no JVD, trachea midline LUNGS: Clear breath sounds bilaterally. No wheezes, pain with deep inspiration HEART: Regular rate and rhythm. Normal S1 and S2, without murmurs ABD: Abdomen soft, nontender. Bowel sounds present EXT: No clubbing cyanosis or edema NEURO: Alert and oriented to person, follows commands FOLLOW-UP: Follow-up with PCP in 2-3 days for reevaluation. Continue incentive spirometer daily as discussed. Continue pain management with tylenol and ibuprofen outpatient. Establish home health for physical therapy at home upon discharge. RECOMMENDATIONS: See Discharge Instructions This case was seen and discussed with my supervising physician. More than 30 minutes spent on discharge process, including evaluation of the patient, disc ussion with nursing staff, medication reconciliation and follow-up appointments ANTONINA FAJARDO Jan 08, 2024 21:02
== END 2024-01-08 19:30 | disposition home or self-care (01) ==
LOC: EDH 12:49 → EDHIP 15:57 → 4DH 16:39
PROVIDERS: ADMIT Internal Medicine Critical Care Medicine; ATTEND Internal Medicine Critical Care Medicine
DX: S22.31XA Fracture of one rib, right side, initial encounter for closed fracture (principal); Z20.822 Contact with and (suspected) exposure to COVID-19; F32.A Depression, unspecified; E83.42 Hypomagnesemia; I95.9 Hypotension, unspecified; F41.9 Anxiety disorder, unspecified; E11.9 Type 2 diabetes mellitus without complications; J42 Unspecified chronic bronchitis; C64.2 Malignant neoplasm of left kidney, except renal pelvis; D64.9 Anemia, unspecified; M25.551 Pain in right hip; M54.9 Dorsalgia, unspecified; M81.0 Age-related osteoporosis without current pathological fracture; Z63.4 Disappearance and death of family member; Z79.84 Long term (current) use of oral hypoglycemic drugs; Z79.4 Long term (current) use of insulin; Z66 Do not resuscitate; W01.0XXA Fall on same level from slipping, tripping and stumbling without subsequent striking against object, initial encounter; Y93.89 Activity, other specified; Y92.098 Other place in other non-institutional residence as the place of occurrence of the external cause; Y99.8 Other external cause status
CPT/HCPCS: 96372; 96375; 99285; 82550; 83735 ×2; 84484; 80048 ×2; 83880; 85025 ×2; 85610; 85730; 36415 ×2; 71045 ×2; 73130; 73502; 71100 ×2; 73660; 70450; 74150; 71250; 93005; 96376; 96365; 80076; 84100; 87804 ×2; 82948 ×11; 87426; 97161; 97116 ×2; 97530 ×2; G0378 ×75; J1171 ×2; J3475; J2360

== ENCOUNTER → 2024-02-27 | Outpatient (CLI) | payer OTHER ==
[~2024-02-27] MED LIST changes: +BACL10TA PO; +BUSP5TAB3 PO; +GABA-1405 PO; +METF-444 PO; +OXYB-66 PO; +PARO10TA71 PO; +PIND10TA2 PO; +TRAZ-185 PO
[2024-02-27 13:06] LABS: ALBUMIN 3.9 g/dL (3.5-5.0); BILIRUBIN,TOTAL 0.3 mg/dL (0.2-1.0); CREATININE 0.8 mg/dL (0.5-1.0); POTASSIUM 4.6 mmol/L (3.5-5.1); TOTAL PROTEIN, SERUM 7.3 g/dL (6.0-8.3)
== END | disposition home or self-care (01) ==
LOC: LAB 02-26 09:21
PROVIDERS: ATTEND Internal Medicine Cardiovascular Disease
DX: I95.1 Orthostatic hypotension (principal); I10 Essential (primary) hypertension
CPT/HCPCS: 36415; 80053; 80061